=== PATIENT | female | born 1965 | race Caucasian/White ===

== ENCOUNTER 2021-12-20 13:11 | Emergency (ER) | payer OTHER ==
[2021-12-20 13:36] LABS: BASOPHIL 0.6 % (0-2); EOSINOPHIL 1.8 % (0-5); HGB 14.3 g/dl (12.5-16.0); LYMPHOCYTE 19.7 % (15-48); MCH 29.7 pg (25.0-31.0); MCHC 32.5 g/dL (32.0-36.0); MCV 91.5 fL (78.0-100.0); MONOCYTE 7.7 % (0-12); MPV 9.9 fL (6.0-9.5); NEUTROPHIL 69.6 % (41-80); NRBC 0; PLT 227 K/uL (150-400); RBC 4.81 M/uL (4.20-5.40); RDW 13.5 % (11.5-14.0); WBC 9.9 K/uL (4.0-10.5)
[2021-12-20 13:41] LABS: INR 1.12 (0.9-1.2); PROTHROMBIN TIME 14.1 SECONDS (11.9-13.9); PTT 26.5 SECONDS (24.9-34.6)
[2021-12-20 13:57] LABS: ALBUMIN 3.8 g/dL (3.4-5.0); BILIRUBIN - TOTAL 0.4 mg/dL (0.2-1.0); BUN/CREAT RATIO (CALC) 15.6 RATIO; CREATININE 0.96 mg/dL (0.51-0.95); POTASSIUM 3.7 mmol/L (3.5-5.1); TOTAL PROTEIN 7.8 g/dL (6.4-8.2)
[2021-12-20 14:05] LABS: CKMB 0.6 ng/mL (0.0-3.6)
== END 2021-12-20 16:36 | disposition other institution (70) ==
LOC: FER 13:11
PROVIDERS: Emergency Medicine
DX: G45.9 Transient cerebral ischemic attack, unspecified (principal); I10 Essential (primary) hypertension; Z28.310 Unvaccinated for COVID-19; Z88.1 Allergy status to other antibiotic agents
CPT/HCPCS: 36415; 70450; 71045; 80053; 80061; 82550; 82553; 83874; 84484; 85025; 85610; 85730; 93005; J2405